=== PATIENT | female | born 1995 | race Caucasian/White ===

== ENCOUNTER 2017-06-22 11:03 | Inpatient (IN) | payer OTHER ==
[~2017-06-22] VITALS: Ht 165.1 cm; Wt 89.7 kg
[2017-06-22] VITALS (10 sets, daily range): BP systolic 113–136; BP diastolic 58–81
[2017-06-22] MEDS ORDERED: PRENTAB9 PO (11:28)
[2017-06-22] MEDS ORDERED: OXYTOCIN DRIP 30 UNITS in APPROPRIATE DILUENT 1 EA IV SCH (18:00)
[2017-06-22] MEDS: LR 1,000 ML IV SCH ×2 (19:07→19:13)
[2017-06-22 19:08] LABS: MEAN CORPUSCULAR HEMOGLOBIN 28.9 pg (27.0-33.0); MEAN CORPUSCULAR HGB CONC 33.7 g/dl (32.0-36.5); MEAN CORPUSCULAR VOLUME 85.8 fl (80.0-96.0); WHITE BLOOD COUNT 14.7 10^3/uL (4.0-10.0)
[2017-06-22] MEDS ORDERED: BUTORPHANOL 2 MG/ML INJ (J0595) IV ONE (22:15)
[2017-06-22] MEDS ORDERED: PROMETHAZINE INJ 25 MG/ML VIAL (J2550) IV ONE (22:15)
[2017-06-23] VITALS (46 sets, daily range): BP systolic 86–170; BP diastolic 52–131
[2017-06-23] MEDS ORDERED: FENTANYL 2MCG/ML ROPIVACAINE 0.2% IN 0.9% NACL 200ML IVBAG As Ordered ONE (02:37)
[2017-06-23] MEDS ORDERED: diphenhydrAMINE INJ 50MG/ML VIAL (J1200) IV PRN (02:46)
[2017-06-23] MEDS ORDERED: FENTANYL/ROPIVACAINE/NACL BAG 200 ML EPIDURAL SCH (02:46)
[2017-06-23] MEDS ORDERED: NALOXONE INJ 0.4 MG/1 ML VIAL (J2310) IV PRN (02:46)
[2017-06-23] MEDS ORDERED: REFRIGERATOR IV KEYS XX PRN (02:46)
[2017-06-23] MEDS ORDERED: ePHEDrine SULFATE 25 MG/5 ML(5MG/ML) SYRINGE IV PRN (02:46)
[2017-06-23] MEDS ORDERED: LACTATED RINGER'S 1000 ML IV PRN (02:46)
[2017-06-23] MEDS ORDERED: EPIDURAL/PCA KEYS XX PRN (02:46)
[2017-06-23] MEDS ORDERED: ONDANSETRON 4MG/2ML VIAL (J2405) IV PRN ×2 (02:46→07:45)
[2017-06-23] MEDS ORDERED: EPIDURAL COMMENT XX SCH (02:46)
[2017-06-23] MEDS ORDERED: ePHEDrine SULFATE 25 MG/5 ML(5MG/ML) SYRINGE As Ordered ONE (03:36)
[2017-06-23] MEDS ORDERED: RHOGAM 300 MCG (1500 IU) INJ (J2790) IM SCH (07:45)
[2017-06-23] MEDS ORDERED: MEASLES,MUMPS,RUBELLA VACCINE INJ (MMR-II) (90707) SC SCH (07:45)
[2017-06-23] MEDS ORDERED: OXYTOCIN DRIP 30 UNITS in APPROPRIATE DILUENT 1 EA IV SCH (07:45)
[2017-06-23] MEDS ORDERED: METHYLERGONOVINE MALEATE 0.2 MG/ML VIAL (J2210) IM PRN (07:45)
[2017-06-23] MEDS ORDERED: ACETAMINOPHEN 500 MG TAB PO PRN (07:45)
[2017-06-23] MEDS ORDERED: PROMETHAZINE 25 MG TAB PO PRN (07:45)
[2017-06-23] MEDS ORDERED: DIBUCAINE 1% OINTMENT 30GM TOP PRN (07:45)
[2017-06-23] MEDS ORDERED: miSOPROStol 200 MCG TAB (S0191) PR ONE (07:45)
[2017-06-23] MEDS ORDERED: METHYLERGONOVINE MALEATE 0.2 MG/ML VIAL (J2210) IM STA (08:12)
[2017-06-23] MEDS: DOCUSATE SODIUM 100 MG CAP PO SCH ×2 (09:00→21:28)
[2017-06-23] MEDS: PRENATAL VITAMINS CHEWABLE TABLET PO SCH (11:07)
[2017-06-23] MEDS: IBUPROFEN 800 MG TAB PO PRN ×2 (11:07→21:28)
[2017-06-24 06:00] VITALS: BP 121/62
--- NOTE | 2017-06-24 07:40 | IPNPDOC ---
Text Note Date of Service The patient was seen on 06/24/17. NOTE PPD#1 s/p S: Pt doing well. Pain well controlled, lochia minimal, voiding spontaneously without problem, tolerating a regular diet, ambulating without difficulty. No f /c/n/v/AGUILA. Breast feeding with no problems. O: normotensive, nml HR, afebrile Abd: soft, appropriately tender, and FF at U-1/fundus nontender Ext: no c/c/e A/P: S/p uncomplicated , PPD#1. Hemodynamically stable, afebrile, pain well controlled. -Routine care -continue to monitor -motrin/tylenol for pain -likely discharge home tomorrow Dr. Tejas Veliz MD VS,Liyah, I+O VSLiyah, I+O Vital Signs Date Time Temp Pulse Resp B/P (MAP) Pulse Ox O2 Delivery O2 Flow Rate FiO2 06/24/17 06:00 97.7 69 18 121/62 (81) 97 Room Air TEJAS VELIZ MD Jun 24, 2017 07:40
[2017-06-24] MEDS: IBUPROFEN 800 MG TAB PO PRN ×2 (08:11→17:31)
[2017-06-24] MEDS: PRENATAL VITAMINS CHEWABLE TABLET PO SCH (09:26)
[2017-06-24] MEDS: DOCUSATE SODIUM 100 MG CAP PO SCH ×2 (09:26→20:44)
[2017-06-24 18:49] VITALS: BP 129/60
[2017-06-25] MEDS: IBUPROFEN 800 MG TAB PO PRN (05:52)
[2017-06-25 06:00] VITALS: BP 117/59
[2017-06-25] MEDS ORDERED: ACET50TA PO (07:33)
[2017-06-25] MEDS ORDERED: IBUP-1114 PO (07:34)
[2017-06-25] MEDS ORDERED: NUPE1OIN2 TOP (07:36)
[2017-06-25] MEDS: DOCUSATE SODIUM 100 MG CAP PO SCH (08:24)
[2017-06-25] MEDS: PRENATAL VITAMINS CHEWABLE TABLET PO SCH (08:24)
== END 2017-06-25 13:30 | disposition home or self-care (01) | DRG 775 ==
LOC: M LDO 11:03 → M LDI 18:32 → M OBS 06-23 12:30
PROVIDERS: ADMIT Obstetrics & Gynecology; ATTEND Obstetrics & Gynecology
PROC: 10E0XZZ Delivery of Products of Conception, External Approach (ICD-10-PCS; principal; 2017-06-23)
PROC: 0HQ9XZZ Repair Perineum Skin, External Approach (ICD-10-PCS; 2017-06-23)
DX: O48.0 Post-term pregnancy (principal); Z37.0 Single live birth; Z3A.41 41 weeks gestation of pregnancy; O70.0 First degree perineal laceration during delivery; Z79.899 Other long term (current) drug therapy

== ENCOUNTER → 2018-12-17 | Outpatient (REF) | payer OTHER ==
[~2018-12-17] MED LIST: IBUP-1114 PO; MAPA500T2 PO; NUPE1OIN2 TOP; PRENTAB9 PO
== END ==
LOC: M SFHCLERA 12:59
PROVIDERS: ATTEND Nurse Practitioner Family
DX: R30.0 Dysuria (principal)